=== PATIENT | male | born 2005 | race Caucasian/White ===

== ENCOUNTER 2024-02-07 12:12 | Outpatient (CLI) | payer MEDICAID | END 2024-02-07 23:59 | disposition home or self-care (01) | LOC: RAD 12:12 | PROVIDERS: ATTEND Family Medicine | DX: M25.841 Other specified joint disorders, right hand (principal); M25.571 Pain in right ankle and joints of right foot; M79.644 Pain in right finger(s) | CPT/HCPCS: 73140; 73610 ==